=== PATIENT | female | born 1945 ===

== ENCOUNTER 2018-02-04 13:25 | Outpatient (CLI) | payer OTHER ==
--- NOTE | 2018-02-05 15:02 | Mammography Report ---
BILATERAL DIGITAL SCREENING MAMMOGRAM with CAD: 02/04/18 13:25:00 CLINICAL: Routine screening. COMPARISON:None available. FINDINGS: The breasts are mostly fatty with bilateral upper-outer residual heterogeneously dense fibroglandular densities. Bilateral benign vascular calcifications. No mass, architectural distortion or suspicious calcifications. IMPRESSION: No mammographic evidence of malignancy. BI-RADS CATEGORY: 2 -- Benign RECOMMENDATION: Routine mammographic screening in one year. COMMENT: Patient follow-up letters are generated by our [employer] application.
== END 2018-02-04 13:26 | disposition home or self-care (01) ==
LOC: SPVWC 13:25
PROVIDERS: ATTEND Internal Medicine
DX: Z12.31 Encounter for screening mammogram for malignant neoplasm of breast (principal)
CPT/HCPCS: 77067